=== PATIENT | female | born 1975 | race Caucasian/White ===

== ENCOUNTER 2020-02-21 12:25 | Emergency (ER) | payer OTHER ==
[~2020-02-21] VITALS: Ht 167.6 cm; Wt 102.1 kg
[~2020-02-21 12:25] MED LIST: ALLEGRA ALLERGY60 MG PO; CEFUROXIME500 MG PO; CITALOPRAM HBR20 MG PO; FISH OIL 1,0001 EAC6 PO; LISINOPRIL10 MG PO; LISINOPRIL5 MG PO; MEDROL4 M1 PO; ONCE DAILY1 EACH PO; PANTOPRAZOLE SO20 MG PO; PREDNISONE10 MG PO; PROVENTIL HFA6.7 GM INH; SINGULAIR10 MG PO; VENTOLIN HFA18 GM IH; ZITHROMAX250 MG PO
[2020-02-21] MEDS ORDERED: VENTOLIN HFA18 GM INH (12:54)
[2020-02-21] MEDS ORDERED: NASAL DECONGES120 MG PO (12:54)
--- NOTE | 2020-02-21 15:07 | EKG ---
[facility] [address] [facility] [place], [place] [address] Signed Sinus tachycardia Otherwise normal ECG No previous ECGs available Confirmed by DARIUS CASTRO MD ([id number]) on 02/21/2020 3:07:09 PM Electronically Signed By: DARIUS CASTRO MD 02/21/20 1507 PATIENT NAME: VENANCIO WHEAT Electrocardiogram DATE OF : 73 PHYSICIAN: DARIUS CASTRO MD REPORT #: [id number] REPORT IS CONFIDENTIAL AND NOT TO BE RELEASED WITHOUT AUTHORIZATION
== END 2020-02-21 17:20 | disposition home or self-care (01) ==
LOC: ED 12:25
DX: R00.2 Palpitations (principal); R53.1 Weakness; I10 Essential (primary) hypertension; K21.9 Gastro-esophageal reflux disease without esophagitis; Z87.891 Personal history of nicotine dependence; Z88.0 Allergy status to penicillin; Z88.5 Allergy status to narcotic agent; Z88.2 Allergy status to sulfonamides; Z79.899 Other long term (current) drug therapy; Z20.828 Contact with and (suspected) exposure to other viral communicable diseases
CPT/HCPCS: 71045; 80053; 81001; 83735; 84484; 85025; 93005; 93010; 99285-25; C9803; U0003

== ENCOUNTER 2021-06-20 05:55 | Day surgery (SDC) | payer OTHER ==
[~2021-06-20] VITALS: Ht 167.6 cm; Wt 103.6 kg
[~2021-06-20 05:55] MED LIST changes: +FLONASE ALLERG9.9 ML NAS; +NASAL DECONGES120 MG PO; +VENTOLIN HFA18 GM INH
--- NOTE | 2021-06-20 08:35 | NUR ---
PT ALERT, ORIENTED AND SUPPORTED BY HER FRIEND DANIELLE. PT IS PLEASANT, ALLITTLE ANXIOUS. GAVE ENCOURAGEMENT, OUTLINED THE DAY. PT REQUESTED PRAYER, DANIELLE WILL REMAIN FOR DC. WILL FOLLOW NEEDED
--- NOTE | 2021-06-20 08:45 | NUR ---
06/20/21 0845 Melissa Obrien 0815 PATIENT ARRIVES TO PACU AWAKE BUT DROWSY. ANSWERS QUESTIONS APPROPRIATELY. RESP EVEN AND UNLABORED, ROOM AIR SATS >94%. DENIES PAIN OR NAUSEA.
--- NOTE | 2021-06-20 11:33 | OR ---
[facility] [address] [place], [place] [address] Signed DATE OF OPERATION: 06/20/2021 SURGEON: Babs Mckenna MD PREOPERATIVE DIAGNOSES: 1. Father with colon cancer at age 70. 2. Unremarkable colonoscopy in 2016. POSTOPERATIVE DIAGNOSIS: Minimal to moderate internal hemorrhoids. PROCEDURE: Colonoscopy biopsy. ESTIMATED BLOOD LOSS: None. INDICATIONS: Venancio is a 45-year-old female asked to see me by her primary care provider for a followup colonoscopy. Her father had been diagnosed with colon cancer at age 70. However, he of diabetes and vascular disease along with atrial fibrillation. Venancio has intermittent rectal bleeding throughout her life. She came at age 40 in 2016. We did upper and lower endoscopy for her at that time. Her colonoscopy was unremarkable. We did use monitored anesthesia care previously and that was fortunate because she developed laryngospasm requiring sevoflurane. Consequently, we asked for monitored anesthesia once again. She also has braces on her teeth at this point in time. She has no lower GI complaints. She reminded me of her twin sister who is with her today. In the office, I had given her a pamphlet on colonoscopy. She recalls the nature of the test. We had reviewed the risk including, but not limited to gas bloating, crampy abdominal pain, bleeding, perforation requiring surgery, and missed diagnosis. She also recalls the need for monitored anesthesia care. She had expressed understanding and wished to proceed. PROCEDURE NOTE: Venancio was taken into our endoscopy suite and placed in the left lateral decubitus position. She was given monitored anesthesia care to include propofol by our nurse organizational development specialist. A digital rectal exam was performed and this was unremarkable. Really nothing in the way of external hemorrhoids. She had good sphincter tone. The adult colonoscope had been introduced and advanced quite readily up into the cecum itself. Her prep was quite excellent. We could easily see the appendiceal orifice and ileocecal Electronically Signed By: BABS MCKENNA MD 06/20/21 1133 PATIENT NAME: VENANCIO WEHAT OPERATIVE REPORT DATE OF : 73 REPORT #: [id number] PHYSICIAN: BABS MCKENNA MD PCP: JULIETA RAUSCH PAC REPORT IS CONFIDENTIAL AND NOT TO BE RELEASED WITHOUT AUTHORIZATION [facility] [address] [place] [id number] Signed valve. The scope was then slowly withdrawn. We found no pathology throughout the entire colon or rectum. Upon retroflexion of the scope, she has just minimal to moderate internal hemorrhoid columns. After this, the gas was suctioned out and the colonoscope was removed. Venancio tolerated the procedure quite well. RECOMMENDATIONS: Venancio can return in 5 years for repeat colonoscopy due to her family history. MD LESLEY Lee/POOL /[id number] cc: MD Julieta Lee PA-C Copies: BABS MCKENNA MD, ERIKA PAC ~ Electronically Signed By: BABS MCKENNA MD 06/20/21 1133 PATIENT NAME: VENANCIO WHEAT OPERATIVE REPORT DATE OF : 73 REPORT #: [id number] PHYSICIAN: BABS MCEKNNA MD PCP: JULIETA RAUSCH REPORT IS CONFIDENTIAL AND NOT TO BE RELEASED WITHOUT AUTHORIZATION
--- NOTE | 2021-06-22 07:37 | EKG ---
[facility] [address] [facility] [place], [place] [address] Signed Normal sinus rhythm Normal ECG When compared with ECG of 02-JUN-2021 15:41, No significant change was found Confirmed by DARIUS CASTRO MD ([id number]) on 06/22/2021 7:37:18 AM Electronically Signed By: DARIUS CASTRO MD 06/22/21 0737 PATIENT NAME: VENANCIO WHEAT Electrocardiogram DATE OF : 73 PHYSICIAN: DARIUS CASTRO MD REPORT #: [id number] REPORT IS CONFIDENTIAL AND NOT TO BE RELEASED WITHOUT AUTHORIZATION
== END 2021-06-20 09:15 | disposition home or self-care (01) ==
LOC: DS 05:55 → OPS 05:55
PROVIDERS: ATTEND Colon & Rectal Surgery
PROC: 0DJD8ZZ Inspection of Lower Intestinal Tract, Via Natural or Artificial Opening Endoscopic (ICD-10-PCS; principal; 2021-06-20 08:00)
DX: Z12.11 Encounter for screening for malignant neoplasm of colon (principal); K64.8 Other hemorrhoids; Z20.822 Contact with and (suspected) exposure to COVID-19
CPT/HCPCS: 93005; 93010; C9803; J2001; J2704; J7121; U0003

== ENCOUNTER 2021-12-27 17:27 | Emergency (ER) | payer OTHER ==
[~2021-12-27] VITALS: Ht 167.6 cm; Wt 99.3 kg
[2021-12-27] MEDS ORDERED: CALCIUM500 MG PO (18:02)
[2021-12-27] MEDS ORDERED: VITAMIN D325 MCG PO (18:02)
[2021-12-27] MEDS ORDERED: MULTI VITAMIN1 EACH PO (18:02)
== END 2021-12-27 20:05 | disposition home or self-care (01) ==
LOC: ED 17:27
PROC: 2W3HX1Z Immobilization of Left Thumb using Splint (ICD-10-PCS; principal; 2021-12-27)
DX: S62.515A Nondisplaced fracture of proximal phalanx of left thumb, initial encounter for closed fracture (principal); I10 Essential (primary) hypertension; Z88.0 Allergy status to penicillin; Z88.2 Allergy status to sulfonamides; Z88.1 Allergy status to other antibiotic agents; Z88.5 Allergy status to narcotic agent; Z79.899 Other long term (current) drug therapy; Z87.891 Personal history of nicotine dependence; X50.1XXA Overexertion from prolonged static or awkward postures, initial encounter
CPT/HCPCS: 29125; 73140; 99283-25; A9270

== ENCOUNTER 2023-07-15 17:32 | Emergency (ER) | payer OTHER ==
[~2023-07-15] VITALS: Ht 167.6 cm; Wt 106.3 kg
[~2023-07-15 17:32] MED LIST changes: +CALCIUM500 MG PO; +MULTI VITAMIN1 EACH PO; +VITAMIN D325 MCG PO
[2023-07-15] MEDS ORDERED: ACETAMINOPHEN 500 MG TAB PO ONE (20:45)
[2023-07-15 21:21] VITALS: BP 129/74
== END 2023-07-15 21:21 | disposition home or self-care (01) ==
LOC: ED 17:32
DX: S93.401A Sprain of unspecified ligament of right ankle, initial encounter (principal); X50.1XXA Overexertion from prolonged static or awkward postures, initial encounter; I10 Essential (primary) hypertension; K21.9 Gastro-esophageal reflux disease without esophagitis; Z88.0 Allergy status to penicillin; Z88.2 Allergy status to sulfonamides; Z88.1 Allergy status to other antibiotic agents; Z88.5 Allergy status to narcotic agent; Z79.899 Other long term (current) drug therapy
CPT/HCPCS: 73630; 99283-25; A9270

== ENCOUNTER 2024-07-09 21:15 | Emergency (ER) | payer OTHER ==
[~2024-07-09] VITALS: Ht 167.6 cm; Wt 110.0 kg
[2024-07-09 21:30] LABS: BASOPHILS 1.1 % (0-2); EOSINOPHILS 2.4 % (0-6); HEMATOCRIT 42.2 % (35.0-50.0); HEMOGLOBIN 14.7 g/dL (12.0-18.0); LYMPHOCYTES 31.5 % (24-44); MCH 31.3 (27-36); MCHC 34.9 g/dl (30-36); MCV 89.6 fl (81-99); MONOCYTES 7.9 % (0-12); NEUTROPHILS 57.1 % (39-80); PLATELET COUNT 235 K/uL (140-440); RBC 4.71 M/ul (4.3-5.7); RDW 12.6 (10.5-15.0)
[2024-07-09] MEDS ORDERED: SODIUM CHLORIDE 0.9% 1,000 ML IV ONE (21:30)
[2024-07-09] MEDS ORDERED: fentaNYL citrate 100 MCG/2 ML VIAL IV ONE (21:30)
[2024-07-09] MEDS ORDERED: ondansetron HCL 4 MG/2 ML VIAL IV ONE (21:30)
[2024-07-09 21:47] LABS: ALBUMIN/GLOBULIN RATIO 1.11 (1.1-2.4); ANION GAP 11.5 (7-21); BILIRUBIN, TOTAL 0.4 mg/dL (0.2-1.0); BUN/CREATININE RATIO 15.78 (6.0-28.6); CALCIUM 9.6 mg/dL (8.5-10.1); CREATININE, SERUM 0.76 mg/dL (0.55-1.02); POTASSIUM 3.5 mmol/L (3.5-5.1); PROTEIN, TOTAL 7.6 g/dL (6.4-8.2)
[2024-07-09] MEDS ORDERED: HYDROmorphone HCL 1 MG/ML SYR IV PRN (22:00)
[2024-07-09 23:05] LABS: BILIRUBIN, URINE NEGATIVE (negative); BLOOD/HGB, URINE NEGATIVE (Negative); KETONE, URINE NEGATIVE (Negative); LEUK ESTERASE, URINE NEGATIVE (negative); NITRITE, URINE NEGATIVE (negative); PH, URINE 6.5 (5-7)
[2024-07-10] MEDS ORDERED: ONDANSETRON ODT8 MG PO (00:36)
[2024-07-10] MEDS ORDERED: HYDROCODON-ACE1 EA10 PO (00:36)
[2024-07-10] MEDS ORDERED: ONDANSETRON 4 MG HOME.PACK SL ONE (00:45)
[2024-07-10] MEDS ORDERED: HYDROCODONE BIT/ACETAMINOPHEN 5/325 MG 1 TAB HOME.PACK PO ONE (00:45)
[2024-07-10 00:57] VITALS: BP 161/76
== END 2024-07-10 01:02 | disposition home or self-care (01) ==
LOC: ED 21:15
PROVIDERS: Family Medicine
DX: K80.20 Calculus of gallbladder without cholecystitis without obstruction (principal); I10 Essential (primary) hypertension; K21.9 Gastro-esophageal reflux disease without esophagitis; Z87.891 Personal history of nicotine dependence; Z88.0 Allergy status to penicillin; Z88.1 Allergy status to other antibiotic agents; Z88.2 Allergy status to sulfonamides; Z88.5 Allergy status to narcotic agent; Z88.8 Allergy status to other drugs, medicaments and biological substances; Z79.899 Other long term (current) drug therapy
CPT/HCPCS: 36415; 74177; 76705; 80053; 81003; 83690; 84703; 85025; 96361; 96375; 99284-25; A9270; J1171; J2405; J3010; J7030

== ENCOUNTER 2024-08-31 05:50 | Day surgery (SDC) | payer OTHER ==
[2024-08-30 13:39] VITALS: BP 142/89
[~2024-08-31] VITALS: Ht 167.6 cm; Wt 104.5 kg
[~2024-08-31 05:50] MED LIST changes: +CALCIUM-MAGNES1 EA10 PO; +HYDROCODON-ACE1 EA10 PO; +LACTATED RINGER'S 1,000 ML IV SCH; +ONDANSETRON ODT8 MG PO
[2024-08-31 06:04] VITALS: BP 134/64
[2024-08-31] MEDS ORDERED: iopamidoL 30 ML VIAL ONE (06:44)
[2024-08-31] MEDS ORDERED: SODIUM CHLORIDE 0.9% 40 ML IV ONE (06:45)
[2024-08-31] MEDS ORDERED: IBLOOD GLUCOSE TEST STRIP 1 EA TEST VI PRN ×2 (07:00→09:00)
[2024-08-31] MEDS ORDERED: LIDOCAINE HCL 1% 5 ML SDV INJ ONE (07:00)
[2024-08-31] MEDS ORDERED: CEFAZOLIN SODIUM 2 GM/20 ML SYR IV SCH (07:00)
[2024-08-31] MEDS ORDERED: HEParin SOD (PORCINE) 5,000 UNIT/ML SDV SUB-Q SCH (07:00)
[2024-08-31] MEDS ORDERED: ROCURONIUM BROMIDE 50 MG/5 ML SYR ONE (07:33)
[2024-08-31] MEDS ORDERED: fentaNYL citrate 100 MCG/2 ML VIAL ONE (07:33)
[2024-08-31] MEDS ORDERED: KETAMINE in NS 50 MG/5 ML SYR ONE (07:33)
[2024-08-31] MEDS ORDERED: LIDOCAINE HCL 2% 5 ML SDV ONE (07:33)
[2024-08-31] MEDS ORDERED: propofoL 200 MG/20 ML VIAL ONE (07:33)
[2024-08-31] MEDS ORDERED: DEXAMETHASONE SOD PHOS 4 MG/ML VIAL ONE (07:33)
[2024-08-31] MEDS ORDERED: MAGNESIUM SULFATE 1 GM/2 ML VIAL ONE (07:33)
[2024-08-31] MEDS ORDERED: ondansetron HCL 4 MG/2 ML VIAL ONE (07:33)
[2024-08-31] MEDS ORDERED: dexmedeTOMIDine HCl 200 MCG/2 ML VIAL ONE (07:33)
[2024-08-31] MEDS ORDERED: ACETAMINOPHEN 1,000 MG/100 ML VIAL ONE (07:33)
[2024-08-31] MEDS ORDERED: LIDOCAINE HCL 4% 5 ML AMP ONE (07:54)
[2024-08-31] MEDS ORDERED: MORPHINE SULFATE 10 MG/ML VIAL ONE (08:32)
[2024-08-31] MEDS ORDERED: SUGAMMADEX SODIUM 200 MG/2 ML ML ONE (08:56)
[2024-08-31] MEDS ORDERED: fentaNYL citrate 50 MCG/ML SDV IV PRN (09:00)
[2024-08-31] MEDS ORDERED: NALOXONE HCL 0.4 MG SYR IV PRN ×2 (09:00→09:30)
[2024-08-31] MEDS ORDERED: ondansetron HCL 4 MG/2 ML VIAL IV PRN (09:00)
[2024-08-31] MEDS ORDERED: KETOROLAC TROMETHAMINE 30 MG/ML VIAL ONE (09:00)
[2024-08-31] MEDS ORDERED: OXYCODON-ACETA1 EAC2 PO (09:28)
[2024-08-31] MEDS ORDERED: IBUPROFEN600 MG PO (09:28)
[2024-08-31] MEDS ORDERED: ACETAMINOPHEN500 MG PO (09:29)
[2024-08-31] MEDS ORDERED: ACETAMINOPHEN 500 MG TAB PO PRN (09:30)
[2024-08-31] MEDS ORDERED: LACTATED RINGER'S 1,000 ML IV SCH (09:30)
[2024-08-31] MEDS ORDERED: OXYCODONE/APAP 7.5/325 TAB PO PRN (09:30)
[2024-08-31] MEDS ORDERED: IBUPROFEN 600 MG TAB PO PRN (09:30)
--- NOTE | 2024-08-31 09:30 | NUR ---
08/31/24 0930 Brittny Aden 0917-PT ARRIVES TO PACU, VIA STRETCHER, RESTING SEMI FOWLERS, PT AWAKENS TO VOICE BUT VERY DROWSY AND FALLS BACK TO SLEEP EASILY, VSS ON 6L VIA MASK, RR EVEN AND UNLABORED. 0925-PT AWAKENS EASILY ON OWN, DENIES PAIN OR NAUSEA, TITRATED TO RA, VS REMAIN STABLE.
[2024-08-31 09:55] VITALS: BP 149/78
--- NOTE | 2024-08-31 10:02 | NUR ---
8957- PT ARRIVES TO DAY SURGERY ROOM 6. BEDSIDE REPORT RECIEVED FROM BRYAN DUNCAN. SURGICAL SITES ASSESSED TOGETHER. THEY SHOW A SMALL AMOUNT OF RED DRAINAGE. PT REPORTS FEELING SLEEPING AND THAT IT IS HARD TO KEEP HER EYES OPEN. PT IS ENCOURAGED TO REST AT THIS TIME. VITAL SIGNS OBTAINED. DISCHARGE CRITERIA DISCUSSED. PT REPORTS 4/10 PAIN THAT IS TOLERABLE, WE TALKED ABOUT EATING SOMETHING BEFORE GETTING A PAIN PILL TO AVOID NAUSEA. PT IS AGREEABLE AND REPORTS THAT SHE DOES NOT WANT TO EAT OR DRINK ANUTHING AT THIS TIME. PT RESTING WITH EYES CLOSED. PT QUESTIONS AND CONCERNS ANSWERED. BED IS LOCKED IN THE LOWEST POSITION AND CALL LIGHT IS IN REACH.
--- NOTE | 2024-08-31 10:15 | NUR ---
1012- PT IS PUT ON 2L OF O2 WHILE RESTING HER O2 LEVELS DECREASED TO 86%. PT IS SATING AT 100% ON 2L. 1018- PT O2 IS DECRESED TO 1L SHE IS SATING AT 100%
[2024-08-31 10:47] VITALS: BP 160/81
--- NOTE | 2024-08-31 10:51 | NUR ---
1045- PT SATS ARE IN THE HIGH 90S. O2 TURNED OFF AND PT IS ON ROOM AIR. 1050- PT REPORTS 4/10 PAIN THAT IS TOLERABLE. PT STILL REMAINS DROWSY AND RESTING WITH EYES CLOSED. SURGICAL SITES SHOW SOME RED DRAINAGE FROM EACH SITE WITH MORE AT THE UMBILLICAL SITE. VSS. LR INFUSING. PT DENIES NASUEA. DISCHARGE CRITERIA DISCUSSED AND PT IS UNDERSTANDING. PT HAS EYES CLOSED AND RESTING. BED IS LOCKED IN THE LOWEST POSITION WITH CALL LIGHT IN REACH.
--- NOTE | 2024-08-31 10:54 | NUR ---
Visited Norma post op in Day Surgery. Groggy but seemed glad for the visit as did her . She was in good spirits and appreciated the prayers for healing.
[2024-08-31 11:56] VITALS: BP 176/80
--- NOTE | 2024-08-31 11:59 | NUR ---
1150- PT IS RESTING AND WATCHING TV WITH HER AT THER BEDSIDE. PT REPORTS PAIN AT 5/10 AND WOULD LIKE TO EAT TO GET A PAIN PILL, AND SOME ICE CHIPS WELL. PT REQUESTING TO SIT UP IN BED. SURGICAL SITES SHOW A SMALL AMOUNT MORE OF DRAINAGE THAT IS SHOWING ON HER GOWN. VITAL SIGNS OBTAINED. BED IS LOCKED IN THE LOWEST POSITION AND CALL LIGHT IN REACH.
[2024-08-31] MEDS ORDERED: SEVOFLURANE 250 ML BTL INH ONE (12:12)
--- NOTE | 2024-08-31 12:41 | NUR ---
1235- PT SITTING UP AT THE SIDE OF THE BED AND IS ABLE TO AMBULATE TO THE RESTROOM WITH SOME ASSISTANCE FROM RN AND . PT WAS ABLE TO VOID 500ML OF CLEAR YELLOW URINE AND RETURN TO ROOM SAFELY. PT REQUESTING PAIN MEDICAITON FOR PAIN 5/10 THAT IS SLOWLY BECOMING LESS TOLERABLE. 1240- PAIN MEDICATION GIVEN, SEE EMAR. CALL LIGHT IN REACH AND BED LOCKED IN THE LOWEST POSITION. PT FAMILY VISITING AND BROUGHT LOPEZ. PT REPORTS PAIN IS LOCATED IN HER MIDDLE RIGHTSIDED BACK. QUESTIONS AND CONCERNS ANSWERED. PT WAS ABLE TO EAT SOME APPLESAUCE AND HAVE SOME ICE CHIPS WELL. FAMILY CHATTING IN PT ROOM.
[2024-08-31 12:47] VITALS: BP 167/79
--- NOTE | 2024-08-31 12:49 | NUR ---
1250- PT RESTING WITH FAMILY AT BEDSIDE. VITAL SIGNS OBTAINED. CALL LIGHT IN REACH. PT IS UNCOMFORTABLE AND RATING PAIN 6/10. PT WAITNG FOR PAIN MED TO TAKE EFFECT.
[2024-08-31] MEDS ORDERED: ondansetron HCL 4 MG/2 ML VIAL IV ONE (13:15)
--- NOTE | 2024-08-31 13:21 | NUR ---
1319- PT REPORTS BEING NAUSEOUS. DR. HENSLEY WALKED BY THE DEPARTMENT, AND HE GAVE A VERBAL FOR 4MG OF ZOFRAN VIA IV ONCE FOR NAUSEA. NAUSEA MEDICAITON GIVEN, SEE EMAR.
[2024-08-31 13:53] VITALS: BP 160/84
--- NOTE | 2024-08-31 14:32 | NUR ---
1400- VITAL SIGNS OBTAINED. PT REPORTS 4/10 PAIN. 1410- IV REMOVED. DISCHARGE CRITERIA GONE OVER. ALL QUESTIONS AND CONCERNS ANSWERED. PT IS GETTING DRESSED WITH AT THE BEDSIDE. 1420-PT IS ABLE TO AMBULATE TO THE WHEELCHAIR. PT HAS ALL BELONGINGS AND PRESCRIPTION. PT IS ABLE TO SAFELY TRANSFER TO FAMILY VEHICLE. PT DC FROM HOSPITAL AT THIS TIME.
--- NOTE | 2024-08-31 15:53 | OR ---
[facility] [address] [place], [place] [address] Signed DATE OF OPERATION: 08/31/2024 SURGEON: Amira Hensley MD PREOPERATIVE DIAGNOSES: 1. Chronic calculous cholecystitis. 2. Obesity. POSTOPERATIVE DIAGNOSES: 1. Chronic calculous cholecystitis. 2. Obesity. PROCEDURES: 1. Laparoscopic cholecystectomy with intraoperative cholangiogram. 2. Surgeon-directed fluoroscopy. ANESTHESIA: General endotracheal; Timbo Manzo CRNA. INDICATION: This 49-year-old white woman is a patient of GRABIEL Martinez. She has had recurrent bouts of right upper abdominal pain and evaluation through the emergency room after a particularly severe episode included a CT scan of the abdomen showing a distended gallbladder and subsequent ultrasound showing multiple mobile small gallstones. She is admitted at this time to undergo cholecystectomy for chronic calculous cholecystitis. She understands the risk of bleeding, infection, and failure to cure her symptoms as well as risks of bile duct injury, need for open surgery, and need for common duct exploration. Understanding that she wished to proceed. FINDINGS: The gallbladder was chronically inflamed. Transillumination confirmed trabeculation of the mucosa of the gallbladder and once excised profound cholesterolosis as well as multiple small gallstones. Cholangiogram was normal. The liver was surprisingly normal despite her obesity. DESCRIPTION OF PROCEDURE: The patient was brought to the operating room, given a general endotracheal anesthetic. Preoperative antibiotic Ancef was given. Sequential compression device stockings used and heparin subcutaneously administered. The abdomen was prepared with a chlorhexidine solution and draped sterilely. Infraumbilical incision was made and using an open Electronically Signed By: AMIRA HENSLEY MD 08/31/24 1553 PATIENT NAME: VENANCIO WHEAT OPERATIVE REPORT DATE OF : 73 REPORT #: [id number] PHYSICIAN: AMIRA HENSLEY MD PCP: JANN COBB PAC REPORT IS CONFIDENTIAL AND NOT TO BE RELEASED WITHOUT AUTHORIZATION [facility] [address] [place], [place] [address] Signed Carmen cannula technique pneumoperitoneum was achieved to a level of 14 mmHg of carbon dioxide gas. Intra-abdominal inspection showed no sign of ascites or carcinomatosis. The gallbladder was obscured from view initially. Three additional trocars were placed in the subxiphoid, right midclavicular, and right anterior axillary line. The gallbladder was elevated cephalad and retracted laterally. Using blunt electrocautery dissection was triangle of Calot was dissected free identifying well the cystic artery and cystic duct. Clips were applied to the cystic artery and the clip was applied across gallbladder cystic duct junction. Transverse choledochotomy was made in the cystic duct. The critical view of safety was maintained during dissection. Egress of clear bile was noted from the cystic duct. Using an Quan type cholangiocatheter intraoperative cholangiography was undertaken showing free flow of contrast in the biliary tree with prompt emptying into the duodenum. Retrograde filling of the common bile duct was noted and was normal. Catheter was removed. The cystic duct was triply clipped and divided. The gallbladder dissected free in a retrograde fashion using electrocautery. A small rent in the gallbladder allowed for egress of clear bile but no stones. The gallbladder was placed in an endobag and extracted through the infraumbilical port site. The gallbladder was opened on the back table and found to have profound cholesterolosis and multiple small gallstones. Irrigation was undertaken in the subhepatic space. There was no sign of bile leak, bleeding or other problems. The trocars removed under direct visualization showing no sign of bleeding. The infraumbilical fascial incision was reapproximated with interrupted 0 Vicryl suture. 10 mL of 0.25% Marcaine with epinephrine injected locally. Skin was closed with interrupted 3-0 Vicryl. Steri-Strips were applied. The patient was extubated and transferred to the recovery room in good condition and suffered no complications. Sponge, needle, and counts were reported as correct x3. MD FRANCISCO Barrett/SEPIDEHL /[id number] cc: Dr. Michel [place] ALVA Cobb PA-C Electronically Signed By: AMIRA HENSLEY MD 08/31/24 1553 PATIENT NAME: VENANCIO WHEAT OPERATIVE REPORT DATE OF : 73 REPORT #: [id number] PHYSICIAN: AMIRA HENSLEY MD PCP: JANN COBB PAC REPORT IS CONFIDENTIAL AND NOT TO BE RELEASED WITHOUT AUTHORIZATION [address] [address] Signed Copies: JANN COBB ~ Electronically Signed By: AMIRA HENSLEY MD 08/31/24 1553 PATIENT NAME: VENANCIO WHEAT OPERATIVE REPORT DATE OF : 73 REPORT #: [id number] PHYSICIAN: AMIRA HENSLEY MD PCP: JANN COBB REPORT IS CONFIDENTIAL AND NOT TO BE RELEASED WITHOUT AUTHORIZATION
--- NOTE | 2024-09-04 09:40 | PATH ---
[facility] [address] [place], [place] [address] Signed SPECIMEN(S): A GALLBLADDER WITH STONES SPECIMEN SOURCE: A. GALLBLADDER WITH STONES CLINICAL HISTORY: Chronic calculus cholecystitis FINAL PATHOLOGIC DIAGNOSIS: Gallbladder, cholecystectomy - Chronic calculous cholecystitis BRP MICROSCOPIC EXAMINATION: Histologic sections of all submitted blocks are examined by light microscopy. These findings, together with the gross examination, support the pathologic diagnosis. GROSS DESCRIPTION: The specimen, labeled and designated "Karina Cao, gallbladder with stones per requisition," is received in formalin and consists of Specimen: Surgically disrupted gallbladder. Dimensions: 7.8 x 3 x 2.1 cm. Serosa: Blue-green and smooth. Cystic Duct: Unobstructed. Calculi: Present�yellow and botryoid. Mucosa: Green and velvety with yellow flecking. Wall thickness: 0.2 to 0.3 cm. Lymph node: No pericystic lymph nodes are grossly identified. Additional: None. Pediatrics Hospitalist sections are submitted in (A1). AA (under the direct supervision of a pathologist) The Gross Description was prepared using a voice recognition system. The report was reviewed for accuracy; however, sound-alike word errors, addition and/or deletions may occur. If there is any question about this report, please contact Client Services. ADDITIONAL NOTES: Immunohistochemical and/or in situ hybridization studies if performed in this case included appropriate positive controls that reacted as expected. This test was developed and its performance PATIENT NAME: VENANCIO CAO PATHOLOGY DATE OF : 73 REPORT #: [id number] PHYSICIAN: CLAUDIO BANERJEE PCP: JANN RAUSCH REPORT IS CONFIDENTIAL AND NOT TO BE RELEASED WITHOUT AUTHORIZATION [address] [place] [address] Signed characteristics determined by [facility]. It has not been cleared or approved by the U.S. Food and Drug Administration. The FDA has determined that such clearance or approval is not necessary. This test is used for clinical purposes. It should not be regarded as investigational or for research. [facility] is certified under the Clinical Laboratory Improvement Amendments of 1988 (CLIA) as qualified to perform high complexity clinical laboratory testing. PERFORMING LABORATORY: Technical component was performed by [facility], [address] [place] [id number] (CLIA# [id number]). Professional interpretation was performed by [facility] - [address] [id number] Diagnostician: Daryl Concepcion MD Pathologist Electronically Signed 09/04/2024 Copies: ~ PATIENT NAME: VENANCIO CAO PATHOLOGY DATE OF : 73 REPORT #: [id number] PHYSICIAN: [facility] PCP: RAUSCH,JANN PAC REPORT IS CONFIDENTIAL AND NOT TO BE RELEASED WITHOUT AUTHORIZATION
== END 2024-08-31 14:20 | disposition home or self-care (01) ==
LOC: DS 05:50
PROVIDERS: ATTEND Surgery
PROC: 0FT44ZZ Resection of Gallbladder, Percutaneous Endoscopic Approach (ICD-10-PCS; principal; 2024-08-31 07:30)
DX: K81.1 Chronic cholecystitis (principal); E66.9 Obesity, unspecified
CPT/HCPCS: 00790; 74300; J0131; J0690; J1100; J1644; J1885; J2003; J2270; J2405; J2704; J3010; J3475; J3490; J7121; Q9967